=== PATIENT | male | born 1995 | race Hispanic/Latino ===

== ENCOUNTER 2019-02-15 22:13 | Emergency (ER) | payer SELFPAY ==
[2019-02-15] MEDS ORDERED: AMOX/K CLAV 875 MG TAB ONE (22:35)
[2019-02-15] MEDS ORDERED: LIDOCAINE VISCOUS 2% SOLN 15 ML UDC ONE (22:35)
--- NOTE | 2019-02-15 22:35 | EDPHYS ---
Physician Documentation [facility] Name: Deandre Gale Age: 23 yrs Sex: Male : 1995 Arrival Date: 02/15/2019 Time: 22:16 Bed 27 Private MD: ED Physician Chad Joseph HPI: 02/15 22:50 This 23 yrs old Male presents to ER via Ambulatory with complaints of Inner snw Cheek Pain. 22:50 The patient presents with pain, swelling. The problem is located in the left salivary snw gland. Onset: The symptoms/episode began/occurred gradually, 1 week(s) ago, and became persistent. Duration: The symptoms are continuous, and are steadily getting worse. Associated signs and symptoms: The patient has no apparent associated signs or symptoms. Severity of symptoms: At their worst the symptoms were moderate, severe. The patient has not experienced similar symptoms in the past. The patient has not recently seen a physician. Historical: - Allergies: 22:40 No Known Allergies; rv - Home Meds: 22:40 None [Active]; rv - PMHx: 22:40 None; rv - PSHx: 22:40 None; rv - Immunization history:: Adult Immunizations up to date. - Social history:: Smoking status: Patient uses tobacco products, denies chronic smoking, but will smoke occasionally. - Ebola Screening: : No symptoms or risks identified at this time. ROS: 22:49 Constitutional: Negative for fever, chills, and weight loss, Eyes: Negative for injury, snw pain, redness, and discharge, Neck: Negative for injury, pain, and swelling, Cardiovascular: Negative for chest pain, palpitations, and edema, Respiratory: Negative for shortness of breath, cough, wheezing, and pleuritic chest pain, Abdomen/GI: Negative for abdominal pain, nausea, vomiting, diarrhea, and constipation, Back: Negative for injury and pain, : Negative for injury, bleeding, discharge, and swelling, MS/Extremity: Negative for injury and deformity, Skin: Negative for injury, rash, and discoloration, Neuro: Negative for headache, weakness, numbness, tingling, and seizure. 22:49 ENT: Positive for left cheek pain. Exam: 22:47 Constitutional: This is a well developed, well nourished patient who is awake, alert, snw and in no acute distress. Head/Face: Normocephalic, atraumatic. Eyes: Pupils equal round and reactive to light, extra-ocular motions intact. Lids and lashes normal. Conjunctiva and sclera are non-icteric and not injected. Cornea within normal limits. Periorbital areas with no swelling, redness, or edema. Neck: Trachea midline, no thyromegaly or masses palpated, and no cervical lymphadenopathy. Supple, full range of motion without nuchal rigidity, or vertebral point tenderness. No Meningismus. Chest/axilla: Normal chest wall appearance and motion. Nontender with no deformity. No lesions are appreciated. Cardiovascular: Regular rate and rhythm with a normal S1 and S2. No gallops, murmurs, or rubs. Normal PMI, no JVD. No pulse deficits. Respiratory: Lungs have equal breath sounds bilaterally, clear to auscultation and percussion. No rales, rhonchi or wheezes noted. No increased work of breathing, no retractions or nasal flaring. Abdomen/GI: Soft, non-tender, with normal bowel sounds. No distension or tympany. No guarding or rebound. No evidence of tenderness throughout. Back: No spinal tenderness. No costovertebral tenderness. Full range of motion. Skin: Warm, dry with normal turgor. Normal color with no rashes, no lesions, and no evidence of cellulitis. MS/ Extremity: Pulses equal, no cyanosis. Neurovascular intact. Full, normal range of motion. Neuro: Awake and alert, GCS 15, oriented to person, place, time, and situation. Cranial nerves II-XII grossly intact. Motor strength 5/5 in all extremities. Sensory grossly intact. Cerebellar exam normal. Normal gait. Psych: Awake, alert, with orientation to person, place and time. Behavior, mood, and affect are within normal limits. 22:47 ENT: External ear(s): are unremarkable, Ear canal(s): are normal, TM's: are normal, Nose: is normal, Mouth: left salivary gland with ulceration, tenderness, fullness, Dental exam: normal, Voice: is normal. Vital Signs: 22:39 BP 135 / 94; Pulse 92; Resp 17; Temp 98.2; Pulse Ox 99% on R/A; rv 22:39 Weight 79.38 kg; Height 5 ft. 8 in. (172.72 cm) (R); rv 22:39 Body Mass Index 26.61 (79.38 kg, 172.72 cm) rv MDM: 22:26 Patient medically screened. snw 22:48 Data reviewed: vital signs, nurses notes. Data interpreted: Pulse oximetry: on room air snw is 99 %. Interpretation: normal. Counseling: I had a detailed discussion with the patient and/or guardian regarding: the historical points, exam findings, and any diagnostic results supporting the discharge/admit diagnosis, the presence of at least one elevated blood pressure reading (>120/80) during this emergency department visit, the need for outpatient follow up, for definitive care, to return to the emergency department if symptoms worsen or persist or if there are any questions or concerns that arise at home. Special discussion: I have referred the patient to see his PCP for further evaluation of high blood pressure. Based on the history and exam findings, there is no indication for further emergent testing or inpatient evaluation. I discussed with the patient/guardian the need to see the primary care provider for further evaluation of the symptoms. Administered Medications: 22:40 Drug: Motrin 400 mg Route: PO; mg2 22:41 Follow up: Response: No adverse reaction; Medication administered at discharge. mg2 22:41 Drug: Viscous Lidocaine Liquid (4 %) 10 ml Route: Mucous Membrane; mg2 22:42 Follow up: Response: No adverse reaction; Medication administered at discharge. mg2 22:41 Drug: Augmentin 875 mg Route: PO; mg2 22:41 Follow up: Response: No adverse reaction; Medication administered at discharge. mg2 Disposition: 02/15/19 22:34 Discharged to Home. Impression: Sialoadenitis, unspecified. - Condition is Stable. - Discharge Instructions: Parotitis, Salivary Gland Infection. - Prescriptions for Augmentin 875- 125 mg Oral Tablet - take 1 tablet by ORAL route every 12 hours for 10 days; 20 tablet. Ultram 50 mg Oral Tablet - take 1 tablet by ORAL route every 6 hours As needed; 12 tablet. - Work release form, Medication Reconciliation Form, Thank You Letter, Antibiotic Education, Prescription Opioid Use form. - Follow up: Emergency Department; When: As needed; Reason: Worsening of condition. Follow up: Private Physician; When: 2 - 3 days; Reason: Recheck today's complaints, Continuance of care, Re-evaluation by your physician. - Notes: Suck on [place] regularly Addendum: 02/20/2019 05:43 Co-signature as Attending Physician, Chad Joseph MD I agree with the assessment and t w4 plan of care. Signatures: Phyllis Marsh, REMOTE SENSING SURVEYOR-C REMOTE SENSING SURVEYOR-Csnw Chad Joseph MD MD tw4 Manohar Yuen, RN RN mg2 Niko Cochran RN RN rv Corrections: (The following items were deleted from the chart) 02/15 22:50 22:34 02/15/2019 22:34 Discharged to Home. Impression: Sialoadenitis, unspecified. rv Condition is Stable. Forms are Medication Reconciliation Form, Thank You Letter, Antibiotic Education, Prescription Opioid Use. Follow up: Emergency Department; When: As needed; Reason: Worsening of condition. Follow up: Private Physician; When: 2 - 3 days; Reason: Recheck today's complaints, Continuance of care, Re-evaluation by your physician. snw
[2019-02-15] MEDS ORDERED: IBUPROFEN 400 MG TAB ONE (22:38)
--- NOTE | 2019-02-15 22:51 | ER ---
Nurse's Notes [facility] Name: Deandre Gale Age: 23 yrs Sex: Male : 1995 Arrival Date: 02/15/2019 Time: 22:16 Bed 27 Private MD: Diagnosis: Sialoadenitis, unspecified Presentation: 02/15 22:36 Presenting complaint: Patient states: my left cheek started to hurt and swell a week rv ago. Transition of care: patient was not received from another setting of care. Onset of symptoms was February 15, 2019 at 08:00. Risk Assessment: Do you want to hurt yourself or someone else? Patient reports no desire to harm self or others. Initial Sepsis Screen: Does the patient meet any 2 criteria? No. Patient's initial sepsis screen is negative. Does the patient have a suspected source of infection? No. Patient's initial sepsis screen is negative. Care prior to arrival: None. 22:36 Method Of Arrival: Ambulatory rv 22:36 Acuity: INGRIS 4 rv Historical: - Allergies: 22:40 No Known Allergies; rv - Home Meds: 22:40 None [Active]; rv - PMHx: 22:40 None; rv - PSHx: 22:40 None; rv - Immunization history:: Adult Immunizations up to date. - Social history:: Smoking status: Patient uses tobacco products, denies chronic smoking, but will smoke occasionally. - Ebola Screening: : No symptoms or risks identified at this time. Screenin:42 Abuse screen: Denies threats or abuse. Denies injuries from another. Nutritional rv screening: No deficits noted. Tuberculosis screening: No symptoms or risk factors identified. Fall Risk None identified. Assessment: 22:41 General: Appears in no apparent distress. uncomfortable, Behavior is calm, cooperative. rv Pain: Complains of pain in mouth. Neuro: Level of Consciousness is awake, alert, obeys commands, Oriented to person, place, time, situation. Cardiovascular: Patient's skin is warm and dry. Respiratory: Airway is patent. GI: No signs and/or symptoms were reported involving the gastrointestinal system. : No signs and/or symptoms were reported regarding the genitourinary system. EENT: left cheek is swelling. Derm: Skin is intact. Musculoskeletal: No signs and/or symptoms reported regarding the musculoskeletal system. Vital Signs: 22:39 BP 135 / 94; Pulse 92; Resp 17; Temp 98.2; Pulse Ox 99% on R/A; rv 22:39 Weight 79.38 kg; Height 5 ft. 8 in. (172.72 cm) (R); rv 22:39 Body Mass Index 26.61 (79.38 kg, 172.72 cm) rv ED Course: 22:16 Patient arrived in ED. cf2 22:26 Niko Cochran RN is Primary Nurse. rv 22:26 Phyllis Marsh FNP-C is PHCP. snw 22:26 Chad Joseph MD is Attending Physician. snw 22:39 Triage completed. rv 22:42 Patient has correct armband on for positive identification. Bed in low position. Call rv light in reach. Side rails up X 1. Pulse ox on. NIBP on. 22:43 Patient placed Patient notified of wait time. rv 22:43 No provider procedures requiring assistance completed. Patient did not have IV access rv during this emergency room visit. Administered Medications: 22:40 Drug: Motrin 400 mg Route: PO; mg2 22:41 Follow up: Response: No adverse reaction; Medication administered at discharge. mg2 22:41 Drug: Viscous Lidocaine Liquid (4 %) 10 ml Route: Mucous Membrane; mg2 22:42 Follow up: Response: No adverse reaction; Medication administered at discharge. mg2 22:41 Drug: Augmentin 875 mg Route: PO; mg2 22:41 Follow up: Response: No adverse reaction; Medication administered at discharge. mg2 Outcome: 22:34 Discharge ordered by MD. snw 22:43 Discharged to home ambulatory, with family. rv 22:43 Condition: good 22:50 Discharge instructions given to patient, family, Instructed on discharge instructions, rv follow up and referral plans. medication usage, Demonstrated understanding of instructions, follow-up care, medications, Prescriptions given X 2. 22:50 Patient left the ED. rv Signatures: Phyllis Marsh FNP-C FNP-Csnw Manohar Yuen RN RN mg2 Niko Cochran RN RN rv Dianne Jimenez cf2
[2019-02-15 22:56] VITALS: BP 135/94; TEMP 98.2; O2SAT 99
== END 2019-02-15 22:50 | disposition home or self-care (01) ==
LOC: ER 22:13
DX: K11.20 Sialoadenitis, unspecified (principal); Z72.0 Tobacco use
CPT/HCPCS: 99283